=== PATIENT | female | born 1975 | race Caucasian/White ===

== ENCOUNTER 2018-07-04 11:15 | Inpatient (IN) | payer OTHER ==
[~2018-07-04] VITALS: Ht 170.2 cm; Wt 64.0 kg
[~2018-07-04 11:15] MED LIST: BUPR-160 PO; TOP100 PO
--- NOTE | 2018-07-04 11:15 | NUR ---
PATIENT BIBA TO BED 10
[2018-07-04 11:27] VITALS: BP 118/67
--- NOTE | 2018-07-04 11:28 | NUR ---
BIB EMS PT PRESENTS TO ED "ALCOHOL WITHDRAWAL," PT ADMITS TO DRINKING WINE "THIS MORNING." PT STS "I DRINK EVERY DAY." PER EMS WAS FOUND KNOCKING ON RESIDENCES' DOORS ASKING FOR ALCOHOL. PT AA&OX4, SPEECH CLEAR, PERRLA, BILATERAL EQUAL STRENGTH TO UPPER AND LOWER EXTREMITIES. BREATHING EVEN AND UNLABORED. C/O FOREHEAD AND RIGHT KNEE PAIN/SWELLING S/P FALL THIS AM, PT C/O ACHING PAIN 7/10 TO FOREHEAD AND RIGHT KNEE+LOC. HOB UP. BED RAILS X2, SEIZURE PRECAUTIONS PLACED. ON LOW BED POSITION, LOCKED. BS 102. ER MD MADE AWARE OF PTS STATUS.
--- NOTE | 2018-07-04 11:42 | NUR ---
SEIZURE PRECAUTIONS IN PLACE. PT REMOVED MONITORING EQUIPMENT. PT A&OX4, PT EDUCATED ON IMPORTANCE OF MONITORING EQUIPMENT REMAINING ON. PT REFUSING TO WEAR MONITORING EQUIPMENT AT THIS TIME. PT IN AND OUT OF GURNEY WITH STEADY GAIT. REFUSING TO STAY IN GURNEY AT THIS TIME. PT ONERY.
--- NOTE | 2018-07-04 11:50 | NUR ---
PT PACING BACK AND FORTH. AXO 4 REFUSING TO STAY IN [facility]. WILL CONTINUE TO MONITOR
--- NOTE | 2018-07-04 12:08 | NUR ---
Patient being evaluated by physician at bedside.
[2018-07-04] MEDS ORDERED: NACL 0.9% 1,000 ML IV ONE (12:15)
[2018-07-04] MEDS ORDERED: LORazepam 2 MG/ML VIAL IVP ONE ×2 (12:15→13:35)
[2018-07-04 12:33] LABS: BASOPHILS # (AUTO) 0.1 K/uL (0.00-0.22); EOSINOPHILS % (AUTO) 0.1 % (0.0-4.0); HEMATOCRIT 34.6 % (36-48); HEMOGLOBIN 11.4 g/dL (12.0-16.0); LYMPHOCYTES # (AUTO) 1.8 K/uL (2.5-16.5); LYMPHOCYTES % (AUTO) 17.7 % (20.5-51.1); MEAN CORPUSCULAR HEMOGLOBIN 29 pg (27-31); MEAN CORPUSCULAR HGB CONC 33 g/dL (33-37); MEAN CORPUSCULAR VOLUME 87.2 fL (80-94); MONOCYTES # (AUTO) 0.6 K/uL (0.8-1.0); MONOCYTES % (AUTO) 6.2 % (1.7-9.3); NEUTROPHILS # (AUTO) 7.8 K/uL (1.8-7.7); PLATELET COUNT (AUTO) 355 K/uL (140-450); RED BLOOD CELL COUNT(AUTO) 3.96 MIL/uL (4.20-5.40); RED CELL DISTRIBUTION WIDTH 15.1 % (11.6-13.7); WHITE BLOOD COUNT (AUTO) 10.4 K/uL (4.8-10.8)
[2018-07-04 12:37] LABS: APPEARANCE,URINE HAZY (CLEAR); BILIRUBIN,URINE NEGATIVE (NEGATIVE); BLOOD, URINE 3+ (NEGATIVE); COLOR,URINE YELLOW (YELLOW); LEUKOCYTE ESTERASE ,URINE TRACE (NEGATIVE); NITRITE, URINE NEGATIVE (NEGATIVE); UGLUCOSE NEGATIVE (NEGATIVE)
--- NOTE | 2018-07-04 12:41 | NUR ---
PT MORE RELAXED. PT IN GURNEY. NSR ON MONITOR. BREATHING EVEN AND UNLABORED.
[2018-07-04 12:46] LABS: ANION GAP 22.6 (8-16); CARBON DIOXIDE 24.8 mmol/L (21-32); CREATININE 0.9 mg/dL (0.6-1.3); POTASSIUM 4.4 mmol/L (3.5-5.1)
[2018-07-04 12:48] LABS: BARBITURATE, URINE POS. ng/ml (NEG <=200); BENZODIAZEPINE, URINE NEG. ng/mL (NEG <=200); CANNABINOID, URINE NEG. ng/mL (NEG <=50); COCAINE, URINE NEG. ng/mL (NEG <=300); OPIATE, URINE NEG. ng/mL (NEG <=2000); PHENCYCLIDINE SCREEN,URINE NEG. ng/mL (NEG <=25); WBC,URINE 0-5 /HPF (0-5)
[2018-07-04 12:50] LABS: PROTHROMBIN TIME 9.6 secs (10.8-13.4)
--- NOTE | 2018-07-04 12:50 | NUR ---
PT TAKEN TO CT VIA WHEEL CHAIR
[2018-07-04 12:52] LABS: ALBUMIN 4.2 g/dL (3.4-5.0); TOTAL BILIRUBIN 0.5 mg/dL (0.0-1.0)
--- NOTE | 2018-07-04 13:16 | NUR ---
CYCLE TOURING GUIDE BROUGHT PT BACK TO BED VIA WHEEL CHAIR
--- NOTE | 2018-07-04 13:40 | NUR ---
PT AMBULATED TO RESTROOM AND BACK TO GURNEY WITH STEADY GAIT. PT REFUSING TO GET BACK INTO GURNEY.
[2018-07-04] MEDS ORDERED: ACETAMINOPHEN 325 MG TAB PO PRN (14:20)
--- NOTE | 2018-07-04 14:46 | NUR ---
PT AMBULATED TO RESTROOM AND BACK TO BED 10 WITH STEADY GAIT. WITNESSED PT USING HAND TICKET PRINTER THEN LICKING HANDS. PT ADMITS TO LICKING HAND TICKET PRINTER. STS "IM HARD UP FOR ALCOHOL." PT REDIRECTED NOT TO CONSUME HAND TICKET PRINTER. DR. BILLY MADE AWARE. SECURITY NOTIFIED. MARILYN CONCRETE FORM SETTER AND FINISHER MADE AWARE, AT BEDSIDE AT THIS TIME.
--- NOTE | 2018-07-04 14:52 | NUR ---
NO SEIZURE ACTIVITY NOTED. SEIZURE PADS IN PLACED. INFORMATION RESOURCE CONSULTANT AT BEDSIDE. REDIRECTED PT NOT TO CONSUME HAND PRIMARY SCHOOL PRINCIPAL. PT MORE CALM AFTER MEDICATION.
--- NOTE | 2018-07-04 14:57 | NUR ---
Patient will be admitted to care of Dr. Collins. Admited to Tele. Will go to room 121 A. Belongings list completed. Report to CAMRYN Stoll.
--- NOTE | 2018-07-04 15:22 | NUR ---
Patient admitted from ER via gurney. Received report from ER nurse, patient anxious and sligthly agitated d/t ETOH withdrawals but is cooperative. Placed patient on fall risk and seizure precaution protocol. Will complete admission assessment and continue to monitor.
--- NOTE | 2018-07-04 15:45 | NUR ---
Patient attempting to ingest wall mounted hand care tech foam. Instructed patient not to do so. Will monitor patient closely.
[2018-07-04 16:00] VITALS: BP 99/60
--- NOTE | 2018-07-04 16:00 | NUR ---
Patient continues to attempt to ingest the hand roll coating machine operator foam despite repeated warnings that it is unsafe to do so. EVS removed roll coating machine operator from room per charge nurse. Will continue to monitor patient closely.
[2018-07-04] MEDS: DEXT 5% /NACL 0.9% 1,000 ML IV SCH (16:30)
[2018-07-04 16:51] VITALS: BP 98/62
[2018-07-04] MEDS ORDERED: LORazepam 1 MG TAB PO SCH (17:00)
--- NOTE | 2018-07-04 17:00 | NUR ---
Patient remains anxious and states "Ativan is not working", CAMRYN Batista to administer PO ativan per PRN order.
--- NOTE | 2018-07-04 17:40 | NUR ---
Patient remains anxious, agitated and shakey, continues to express lack of relief from the Ativan. RN Lynne to administer IV Ativan per PRN order. Will continue to monitor Pt.
[2018-07-04] MEDS: LORazepam 2 MG/ML VIAL IVP PRN (17:46)
--- NOTE | 2018-07-04 18:15 | NUR ---
Patient seems less anxious, and less restless. Pt. awake and alert, and resting in bed with bed in low position, and call light within reach. Will continue to monitor.
--- NOTE | 2018-07-04 18:46 | NUR ---
Ativan reassessment: Pt calmyly sitting up in bed, eating dinner. No signs of distress, no jittering/shaking observed. Call light within reach.
--- NOTE | 2018-07-04 19:00 | NUR ---
Patient complained of IV site discomfort and wanted to change the IV in Left hand. IV is patent and site is asymptomatic. Replaced ER dressing with new transparent dressing and taped for patient comfort. Turned on TV and instructed patient on use of call light/remote. Patient verbalized increased comfort.
--- NOTE | 2018-07-04 19:20 | NUR ---
Gave bedside report to night baker nurse Cristian, patient resting in bed, no signs of distress on RA. Watching TV with bed in low position and call light within reach.
--- NOTE | 2018-07-04 19:21 | NUR ---
REPORT RECEIVED FROM AM NURSE AT BEDSIDE. PT IN STABLE CONDITION. AAOX4. INTRODUCED SELF TO PT. BOARD UPDATED. NO COMPLAINTS OF PAIN. NO SOB. AFEBRILE. IV SITE L HAND 20G RUNNING D5NS@100ML/HR PATENT AND INTACT. SKIN WARM, DRY, AND INTACT WITH NO OPEN WOUNDS. BED LOCKED IN LOW POSITION. CALL SHAFFER WITHIN REACH. SAFETY PRECAUTIONS IN PLACE. ALL NEEDS MET AT THIS TIME. Addendum: 07/05/18 at 0042 by Cristian Arriola RN PT AMBULATES. HAS NO ORDERS FOR VTE PROPHYLAXIS.
[2018-07-04 20:00] VITALS: BP 106/61
[2018-07-04] MEDS: buPROPion 75 MG TAB PO SCH (20:10)
[2018-07-04] MEDS: TOPIRAMATE 100 MG TAB PO SCH (20:10)
--- NOTE | 2018-07-04 20:10 | NUR ---
WELLBUTRIN AND TOPAMAX GIVEN PO. PT TOLERATED WELL.
[2018-07-04] MEDS: ONDANSETRON 4 MG/2 ML VIAL IVP PRN (21:25)
--- NOTE | 2018-07-04 21:45 | NUR ---
PT HAS COMPLAINTS OF 7/10 NECK PAIN. MD NOTIFIED.
--- NOTE | 2018-07-04 21:50 | NUR ---
RETURNED CALLED FROM MD ABOUT PT'S PAIN. NEW ORDER OF NORCO 10/325 PO Q4H PRN FOR MILD PAIN. TORB.
[2018-07-04] MEDS: HYDROcodone/APAP 10/325 MG 1 TAB TAB PO PRN (22:04)
--- NOTE | 2018-07-04 22:04 | NUR ---
NORCO GIVEN FOR 7/10 PAIN. PT TOLERATED WELL.
[2018-07-05] VITALS: BP 109/61
--- NOTE | 2018-07-05 00:30 | NUR ---
PT AWAKE AND ALERT WATCHING TV IN BED. NO S/S OF DISTRESS NOTED. WILL CONTINUE TO MONITOR.
[2018-07-05] MEDS: LORazepam 2 MG/ML VIAL IVP PRN ×5 (02:20→23:32)
[2018-07-05] MEDS: ONDANSETRON 4 MG/2 ML VIAL IVP PRN ×6 (02:20→22:26)
[2018-07-05] MEDS: HYDROcodone/APAP 10/325 MG 1 TAB TAB PO PRN ×6 (02:20→22:26)
[2018-07-05] MEDS: DEXT 5% /NACL 0.9% 1,000 ML IV SCH ×3 (02:20→14:34)
--- NOTE | 2018-07-05 02:20 | NUR ---
ZOFRAN GIVEN FOR NAUSEA. NORCO GIVEN FOR 6/10 NECK PAIN. PT TOLERATED WELL.
--- NOTE | 2018-07-05 03:20 | NUR ---
VS STABLE. PT SLEEPING BUT AROUSABLE. NO S/S OF DISTRESS NOTED. BREATHING EVEN, UNLABORED, AND WNL. WILL CONTINUE TO MONITOR.
[2018-07-05 04:00] VITALS: BP 103/59
--- NOTE | 2018-07-05 05:25 | NUR ---
PT HAS COMPLAINTS OF CHEST PAIN. ATIVAN GIVEN TO SEE IF CHEST PAIN IS DUE TO ANXIETY. WILL REASSESS IN 15 MINUTES.
--- NOTE | 2018-07-05 05:45 | NUR ---
RETURNED CALL. ORDERED EKG AND TROPONIN.
--- NOTE | 2018-07-05 06:00 | NUR ---
MD ORDERED TYLENOL 650MG PO FOR THE CHEST PAIN BUT PATIENT SAID SHE WOULD RATHER WAIT FOR THE NORCO TO BE DUE THAN TAKE THE TYLENOL. TYL 650MG PULLED FROM PYXIS AND OPENED. WASTED IN PHARMACEUTICAL BIN.
--- NOTE | 2018-07-05 06:21 | NUR ---
ZOFRAN GIVEN IVP FOR NAUSEA. NORCO GIVEN FOR CHEST PAIN. PT TOLERATED WELL.
[2018-07-05 06:56] LABS: BASOPHILS % (AUTO) 0.5 % (0.0-2.0); EOSINOPHILS % (AUTO) 0.4 % (0.0-4.0); HEMATOCRIT 28.3 % (36-48); HEMOGLOBIN 9.4 g/dL (12.0-16.0); LYMPHOCYTES # (AUTO) 1.1 K/uL (2.5-16.5); LYMPHOCYTES % (AUTO) 20.9 % (20.5-51.1); MEAN CORPUSCULAR HEMOGLOBIN 29 pg (27-31); MEAN CORPUSCULAR HGB CONC 33 g/dL (33-37); MEAN CORPUSCULAR VOLUME 88.6 fL (80-94); MONOCYTES # (AUTO) 0.3 K/uL (0.8-1.0); MONOCYTES % (AUTO) 5.5 % (1.7-9.3); NEUTROPHILS # (AUTO) 3.9 K/uL (1.8-7.7); NEUTROPHILS % (AUTO) 72.7 % (42.2-75.2); PLATELET COUNT (AUTO) 249 K/uL (140-450); RED BLOOD CELL COUNT(AUTO) 3.19 MIL/uL (4.20-5.40); RED CELL DISTRIBUTION WIDTH 15.1 % (11.6-13.7); WHITE BLOOD COUNT (AUTO) 5.3 K/uL (4.8-10.8)
[2018-07-05 07:26] LABS: ANION GAP 12.6 (8-16); CARBON DIOXIDE 28.9 mmol/L (21-32); CREATININE 0.7 mg/dL (0.6-1.3); PHOSPHORUS 3.4 mg/dL (2.5-4.9); POTASSIUM 3.5 mmol/L (3.5-5.1); TOTAL BILIRUBIN 0.8 mg/dL (0.0-1.0)
[2018-07-05 08:00] VITALS: BP 109/77
[2018-07-05] MEDS ORDERED: buPROPion 75 MG TAB PO SCH (09:00)
[2018-07-05] MEDS: buPROPion 75 MG TAB PO SCH ×2 (09:15→20:11)
[2018-07-05] MEDS: THIAMINE 100 MG TAB PO SCH (09:15)
[2018-07-05] MEDS: TOPIRAMATE 100 MG TAB PO SCH ×2 (09:15→20:11)
[2018-07-05] MEDS: FOLIC ACID 1 MG TAB PO SCH (09:15)
[2018-07-05] MEDS: MULTIVITAMIN/MINERALS 1 TAB PO SCH (09:15)
--- NOTE | 2018-07-05 10:01 | NUR ---
PATIENT HAS BEEN SCREENED AND CATEGORIZED MODERATE NUTRITION RISK. PATIENT WILL BE SEEN WITHIN 3-5 DAYS OF ADMISSION. 07/07/18[address]
--- NOTE | 2018-07-05 10:30 | NUR ---
Patient in bed, complaining of pain 7/10 for headache, but refusing Tylenol and requesting Bonfield. Bonfield not available to administer until 10:27. Otherwise no signs of distress on RA, Bed in low position, Call light within reach. Will continue to monitor
--- NOTE | 2018-07-05 11:28 | NUR ---
CM NOTE I SPOKE WITH [facility]AN [phone] TO SET UP PATIENT'S OUTPATIENT FOLLOW UP APPOINTMENT ON JULY 12, 2018, 0915 AM, AT [address] [place] [id number]. I GAVE THE PATIENT HER OUTPATIENT FOLLOW UP SCHEDULE.
--- NOTE | 2018-07-05 11:30 | NUR ---
Patient states that the [place] makes her stomach hurt, and is requesting a pain medication that can be given IV. Current pain med is effective.
[2018-07-05 12:00] VITALS: BP 109/72
--- NOTE | 2018-07-05 13:30 | NUR ---
Received report from charge nurse that pt was found sitting on the floor on the right side of her bed @ 1310. Pt was assessed by charge nurse, noted right neck 10/10 pain, no redness/swelling. VS: 148/98, 98.8, 116, 20, 96% room air. Dr. Collins was paged. Pt was assisted back to bed with min assist, ice pack given for rt neck pain. Pt reassessed at this time. Pt in bed, awake, ice pack on right neck. Cont to verbalize 10/10 pain to site. Inspected site; no swelling/redness. Current BP 132/83 at this time. Bed alarm on. Call light within reach. Will continue to monitor. Awaiting physician call back.
--- NOTE | 2018-07-05 14:10 | NUR ---
Pt requests assistance to void. Pt states right neck pain reduced to 8/10 & is tolerable. Able to amb with unsteady gait from bed to toilet. Hand held assist provided. Voided x1. Assisted with handwashing & back to bed. Bed alarm on low with alarm on, call light within reach.
--- NOTE | 2018-07-05 14:25 | NUR ---
Lorazepam admin: Pt in bed noted to be jittery/shaking. Pt alert, verbal, no c/o discomfort at this time, ice pack to right neck for comfort. Lorazepam IVP administered. Bed on lowest position with alarm on, call light within reach.
[2018-07-05 16:00] VITALS: BP 115/76
--- NOTE | 2018-07-05 16:00 | NUR ---
Patient lying in bed, vitals stable, complaining of pain 7/10 in neck region and requesting medication for pain. Not able to admin pain meds at this time. Will continue to monitor patient
--- NOTE | 2018-07-05 19:14 | NUR ---
Report given to pm nurse Foster.
--- NOTE | 2018-07-05 19:15 | NUR ---
REPORT RECEIVED FROM AM NURSE AT BEDSIDE. PT IN STABLE CONDITION. AAOX4. INTRODUCED SELF TO PT. BOARD UPDATED. NO COMPLAINTS OF PAIN. NO SOB. AFEBRILE. IV SITE L HAND 20G RUNNING D5NS@100ML/HR PATENT AND INTACT. SKIN WARM, DRY, AND INTACT BUT HAS BRUISING ON THE FOREHEAD AND ARM. BED LOCKED IN LOW POSITION. CALL SHAFFER WITHIN REACH. SAFETY PRECAUTIONS IN PLACE. ALL NEEDS MET AT THIS TIME.
[2018-07-05 20:00] VITALS: BP 117/71
[2018-07-05] MEDS: LORazepam 1 MG TAB PO SCH (20:11)
--- NOTE | 2018-07-05 20:11 | NUR ---
WELLBUTRIN, ATIVAN, AND TOPAMAX GIVEN PO. PT TOLERATED WELL.
--- NOTE | 2018-07-05 20:50 | NUR ---
PT PULLED OUT IV. CANNULA INTACT. WILL INSERT NEW IV.
--- NOTE | 2018-07-05 21:30 | NUR ---
NEW IV INSERTED L FA 22G. 1 ATTEMPT THAT FLUSHES WELL. DATE, TIME AND INITIALS PLACED.
--- NOTE | 2018-07-05 22:26 | NUR ---
NORCO GIVEN FOR 7/10 NECK PAIN. ZOFRAN GIVEN FOR NAUSEA. PT TOLERATED WELL.
--- NOTE | 2018-07-05 23:32 | NUR ---
ATIVAN GIVEN FOR ANXIETY. PT TOLERATED WELL.
[2018-07-06] VITALS: BP 111/76
[2018-07-06] MEDS: DEXT 5% /NACL 0.9% 1,000 ML IV SCH ×2 (00:30→10:45)
[2018-07-06] MEDS: HYDROcodone/APAP 10/325 MG 1 TAB TAB PO PRN ×5 (02:30→21:37)
[2018-07-06] MEDS: ONDANSETRON 4 MG/2 ML VIAL IVP PRN ×5 (02:30→21:05)
--- NOTE | 2018-07-06 02:30 | NUR ---
NORCO GIVEN FOR 7/10 NECK PAIN. ZOFRAN GIVEN FOR NAUSEA. PT TOLERATED WELL.
[2018-07-06 04:00] VITALS: BP 113/73
[2018-07-06] MEDS: LORazepam 2 MG/ML VIAL IVP PRN ×4 (04:07→17:18)
--- NOTE | 2018-07-06 04:07 | NUR ---
ATIVAN GIVEN FOR ANXIETY. PT TOLERATED WELL.
--- NOTE | 2018-07-06 05:20 | NUR ---
MD RETURNED CALL REGARDING PT'S MIGRAINE. ORDERED IBUPROFEN 400MG PO Q4H PRN FOR HEADACHE. TORB.
[2018-07-06] MEDS: IBUPROFEN 400 MG TAB PO PRN (05:28)
--- NOTE | 2018-07-06 05:28 | NUR ---
IBUPROFEN GIVEN FOR A HEADACHE. PT TOLERATED WELL.
--- NOTE | 2018-07-06 07:11 | NUR ---
REPORT GIVEN TO AM NURSE AT BEDSIDE. PT IN STABLE CONDITION.
--- NOTE | 2018-07-06 07:12 | NUR ---
REPORT RECEIVED FROM WASHING MACHINE OPERATOR CAMRYN QUACH AT BEDSIDE FOR CONTINUITY OF CARE. PATIENT AWAKE AND ALERT, C/O OF PAIN AND REQUESTING FOR PAIN MEDICATION. WILL ASSESS AND MEDICATE PATIENT. RESPIRATIONS EVEN AND UNLABORED ON ROOM AIR. PATIENT IS ANXIOUS ABOUT PAIN MEDICATION. IV SITE PATENT, INTACT, AND ASYMPTOMATIC INFUSING IVF WELL. VERBALIZED PLAN OF CARE WITH PATIENT, SHE VERBALIZED UNDERSTANDING AND ASKED FOR NEXT ATIVAN DOSE, INFORMED HER OF NEXT SCHEDULE DOSE. SAFETY AND SEIZURE PRECAUTIONS IN PLACE, BED ON LOWEST SETTING WITH BED ALARM ON, CALL LIGHT WITHIN REACH, WILL CONTINUE TO MONITOR PATIENT.
[2018-07-06 08:00] VITALS: BP 112/81
--- NOTE | 2018-07-06 08:18 | NUR ---
DR. TARANGO IN TO SEE THE PATIENT. WILL WAIT FOR HIS EVALUATION.
[2018-07-06] MEDS ORDERED: IBUP-2216 PO (08:24)
--- NOTE | 2018-07-06 08:25 | NUR ---
DR. TARANGO CALLED BACK. INFORMED HIM ABOUT PATIENT'S REQUEST TO GO HOME TOMORROW AND HOW SHE WAS FEELING "PAIN AND UNABLE TO MOVE". PHYSICAL THERAPY HAD BEEN IN TO SEE PATIENT. PATIENT REFUSED TO WALK AROUND IN HALLWAY STATING THAT SHE WAS "UNSTEADY AND CAN'T DO IT". PER DOCTOR TARANGO, PATIENT CLEARED MEDICALLY TO GO HOME, TRANSPORT CAN BE PROVIDED BY BUS PASS OR [facility] [facility]. PATIENT CAN GO HOME LATER IN THE DAY. RN VERBALIZED UNDERSTANDING.
--- NOTE | 2018-07-06 08:50 | NUR ---
PATIENT REPORTED ANXIOUSNESS. ATTEMPTED TO GET OUT OF BED. PATIENT UNSTEADY. ATIVAN GIVEN. PATIENT TOLERATING IT. PATIENT NOW BACK IN BED. SAFETY PRECAUTIONS IN PLACE, CALL LIGHT WITHIN REACH, BED ALARM ON AND IN LOWEST SETTING, WILL CONTINUE TO MONITOR PATIENT.
[2018-07-06] MEDS: LORazepam 1 MG TAB PO SCH ×2 (09:00→20:35)
--- NOTE | 2018-07-06 09:30 | NUR ---
PATIENT AMBULATED TO BATHROOM ON STEADY GAIT WITH STANDBY ASSIST. PATIENT VOIDED. PATIENT NOW BACK IN BED, PATIENT C/O PAIN, REQUESTING FOR NORCO, REMINDED HER OF NEXT SCHEDULED DUE MED. OFFERRED HER MOTRIN PO. PATIENT REFUSED. SAFETY PRECAUTIONS IN PLACE, CALL LIGHT WITHIN REACH, WILL CONTINUE TO MONITOR PATIENT.
[2018-07-06] MEDS: MULTIVITAMIN/MINERALS 1 TAB PO SCH (09:38)
[2018-07-06] MEDS: TOPIRAMATE 100 MG TAB PO SCH ×2 (09:38→20:34)
[2018-07-06] MEDS: THIAMINE 100 MG TAB PO SCH (09:38)
[2018-07-06] MEDS: buPROPion 75 MG TAB PO SCH (09:38)
[2018-07-06] MEDS: FOLIC ACID 1 MG TAB PO SCH (09:39)
--- NOTE | 2018-07-06 09:40 | NUR ---
ORDERED MEDICATIONS GIVEN. PATIENT TOLERATED THEM. RESPIRATIONS EVEN AND UNLABORED ON ROOM AIR. PATIENT ASKED FOR NEXT DUE KEVINCO, INFORMED HER OF NEXT SCHEDULED MED, SHE VERBALIZED UNDERSTANDING. SAFETY PRECAUTIONS IN PLACE, CALL LIGHT WITHIN REACH, WILL CONTINUE TO MONITOR PATIENT.
[2018-07-06 11:53] VITALS: BP 122/81
--- NOTE | 2018-07-06 12:05 | NUR ---
SPOKE WITH ASSIGNED NURSE EARLIER THAT PT IS REQUESTING TO GO HOME TOMORROW, PT STATED SHE LIVES ALONE, STILL WEAK AND SHAKY AND SHE DOES NOT HAVE HER HOUSE KEYS. LEFT A MESSAGE TO PT'S MOTHER (CELLPHONE) QUINTEN SHANE LISTED ON FACE SHEET REGARDING PT'S DISCHARGE TO HOME. SPOKE WITH DR. TARANGO, RECEIVED A TORB FOR PSYCH CONSULT. SPOKE WITH THE EXCHANGE, MESSAGE SENT TO DR. BEDOLLA. AWAITING FOR CALL BACK, ASSIGNED NURSE MADE AWARE.
--- NOTE | 2018-07-06 12:51 | NUR ---
DR. ORTIZREES IN TO SEE THE PATIENT. WILL WAIT FOR HIS EVALUATION.
--- NOTE | 2018-07-06 13:02 | NUR ---
PRN ATIVAN GIVEN PER PATIENT'S REQUEST DUE TO HER ANXIOUSNESS AND "SHAKINESS". UPDATED PATIENT WITH INFORMATION, HER MOTHER QUINTEN SHANE WAS CALLED AT [phone], NO ANSWER, VOICEMAIL LEFT. WILL WAIT FOR HER CALL BACK.
--- NOTE | 2018-07-06 13:22 | NUR ---
CALLED PATIENT'S MOTHER QUINTEN SHANE AT [phone]. NO ANSWER, VOICEMAIL LEFT, WILL FOLLOW UP.
--- NOTE | 2018-07-06 14:45 | NUR ---
CALLED QUINTEN SHANE AT [phone], NO ANSWER. LEFT VOICEMAIL WITH CALL BACK NUMBER, WILL CONTINUE TO FOLLOW UP. PATIENT RESTING IN BED, HAD GOTTEN UP AND AMBULATED TO BATHROOM ON SLOW BUT STEADY GAIT. PATIENT ASKED WHEN NEXT PAIN MED AND ATIVAN DOSE DUE. INFORMED HER OF THE NEXT SCHEDULED DOSES. SHE VERBALIZED UNDERSTANDING. NO COMPLAINTS AT THIS TIME. SAFETY AND SEIZURE PRECAUTIONS IN PLACE, CALL LIGHT WITHIN REACH, WILL CONTINUE TO MONITOR PATIENT.
--- NOTE | 2018-07-06 15:15 | NUR ---
CALLED PT'S MOTHER, QUINTEN SHANE AT [phone], NO ANSWER. LEFT VOICEMAIL WITH CALL BACK NUMBER, WILL CONTINUE TO FOLLOW UP.
[2018-07-06 16:00] VITALS: BP 120/80
--- NOTE | 2018-07-06 17:03 | NUR ---
PRN ATIVAN GIVEN PER PATIENT'S REQUEST DUE TO HER ANXIOUSNESS AND "SHAKINESS". PATIENT TOLERATED IT WELL. SAFETY PRECAUTIONS IN PLACE, CALL LIGHT WITHIN REACH, WILL CONTINUE TO MONITOR PATIENT.
--- NOTE | 2018-07-06 19:09 | NUR ---
REPORT GIVEN TO HOME COORDINATOR RN AT BEDSIDE FOR CONTINUITY OF CARE. PATIENT INQUIRED ABOUT HER PAIN MEDICATION AND ATIVAN. INFORMED HER OF NEXT SCHEDULED MED AND TO ASK HER PM RN WHEN THE MEDICATIONS ARE DUE. SHE VERBALIZED UNDERSTANDING. PATIENT IN STABLE CONDITION.
--- NOTE | 2018-07-06 19:10 | NUR ---
RECEIVED PATIENT AWAKE LYING ON BED. RESPIRATION EVEN AND UNLABORED. EXPLAINED PLAN OF CARE. FALL PRECAUTION APPLIED . CALL LIGHT WITHIN REACH.PATIENT FOLLOW SIMPLE COMMANDS, AND ABLE TO RECOGNIZES HER NEEDS. WILL CONTINUE TO MONITOR.
[2018-07-06 20:00] VITALS: BP 122/75
--- NOTE | 2018-07-06 21:00 | NUR ---
SCHEDULE MEDICATION GIVEN TOLERATED WELL. FALL PRECAUTION APPLIED. CALL LIGHT WITHIN REACH. WILL CONTINUE TO MONITOR.
[2018-07-07] VITALS: BP 112/79
--- NOTE | 2018-07-07 | NUR ---
SEEN PATIENT RESTING COMFORTABLY IN BED IN MEDINA POSITION. NO S/S OF DISTRESS NOTED.FALL PRECAUTION APPLIED. CALL LIGHT WITHIN REACH.
--- NOTE | 2018-07-07 00:30 | NUR ---
PT IN BED SHE REFUSED V/S. NO S/S OF PAIN OR DISTRESS NOTED. BED LOW AND ALL FALLS PRECAUTIONS IN PLACE.
[2018-07-07 04:00] VITALS: BP 118/80
--- NOTE | 2018-07-07 04:00 | NUR ---
REPORT GIVEN TO AM SHIFT RN AT BEDSIDE. BED IN LOW LOCKED POSITION. CALL LIGHT WITHIN REACH. PATIENT IN STABLE CONDITION.
[2018-07-07] MEDS: IBUPROFEN 400 MG TAB PO PRN (05:24)
[2018-07-07] MEDS: ONDANSETRON 4 MG/2 ML VIAL IVP PRN ×4 (06:55→22:45)
[2018-07-07] MEDS: HYDROcodone/APAP 10/325 MG 1 TAB TAB PO PRN ×5 (06:55→22:34)
--- NOTE | 2018-07-07 07:00 | NUR ---
RECEIVED BEDSIDE REPORT FROM CAMRYN HASSAN. PATIENT ON TELE MONITOR AND STANDARD PRECAUTIONS IN PLACE. FALL RISK AND SEIZURE PRECAUTIONS IN PLACE. PATIENT AAOX4. ON ROOM AIR, NO DISTRESS NOTED. ABRASIONS ON FOREHEAD, R KNEE, R SANCHEZ ALL OPEN TO AIR. PATIENT AMBULATORY AND CONTINENT. IV ON L FA 22 G SALINE LOCK, ASYMPTOMATIC PATENT AND INTACT. BED IN LOW POSITION, CALL LIGHT WITHIN REACH, WILL CONTINUE TO MONITOR.
[2018-07-07 08:00] VITALS: BP 115/78
[2018-07-07] MEDS: LORazepam 1 MG TAB PO SCH (08:24)
[2018-07-07] MEDS: TOPIRAMATE 100 MG TAB PO SCH ×2 (08:25→21:05)
[2018-07-07] MEDS: FOLIC ACID 1 MG TAB PO SCH (08:25)
[2018-07-07] MEDS: MULTIVITAMIN/MINERALS 1 TAB PO SCH (08:25)
[2018-07-07] MEDS: THIAMINE 100 MG TAB PO SCH (08:25)
--- NOTE | 2018-07-07 08:27 | NUR ---
ADMINISTERED SCHEDULED MEDS. PATIENT TOLERATED WELL. WILL CONTINUE TO MONITOR.
--- NOTE | 2018-07-07 09:15 | NUR ---
PATIENT WAS WALKING WITH PT AND VERBALLY STATED TO ME "IF THE DOCTOR LETS ME GO HOME, HE IS RESPONSIBLE IF I KILL MYSELF. I NEED TO BE BROUGHT TO ANOTHER FACILITY FOR A 5150 HOLD."
--- NOTE | 2018-07-07 10:15 | NUR ---
PATIENT DOWNGRADED TO MED SURGE. REMOVED TELE MONITOR. WILL CONTINUE TO MONITOR.
--- NOTE | 2018-07-07 11:50 | NUR ---
CM NOTE RECEIVED ORDER TO GO TO PSYCH FACILITY. FAXED ORDER, COPY OF 5150 AND CLINICAL PACKET TO [facility] [phone], ATTN: ZARA # [phone]. I GAVE BEHAVIORAL THE NUMBER TO THE NURSING STATION WHERE PATIENT IS IN CASE THEY CALL AT A LATER TIME.
--- NOTE | 2018-07-07 12:53 | NUR ---
PATIENT SLEEPING. ON ROOM AIR, NO COMPLAINTS AT THIS TIME. WILL CONTINUE TO MONITOR.
--- NOTE | 2018-07-07 13:53 | NUR ---
ADMINISTERED ZOFRAN PRN FOR FEELING NAUSEATED AND NORCO PRN FOR 8/10 PAIN. BP OF 131/86 AND HR 76. PATIENT TOLERATED WELL. WILL CONTINUE TO MONITOR.
--- NOTE | 2018-07-07 15:09 | NUR ---
No updates from contacted facilties at this time. will continue to look for placement throughout shift. will update unit when new information has been received. No beds available at following hospitals: Called [facility] and s/w Tanesha, No vacancies at this time. Called [facility] and s/w Eduardo, No Beds available today. Called [facility], No beds available today. Called [facility] and s/w Randa, reviewing charts at this time. Called [facility] and s/w Leyda, no Beds at this time. Called [facility] and s/w Emir, No beds available at this time. Called [facility] and s/w Merle, No vacancies at this time. Called [facility] and s/w Jude, they have no beds at this time and are still reviewing charts. Called [facility] and s/w iMna they have no beds at this time and are still reviewing charts. Called [facility] and s/w Jamila, they have no beds at this time and are still reviewing charts.
--- NOTE | 2018-07-07 15:30 | NUR ---
PATIENT WATCHING TV. ON ROOM AIR, NO DISTRESS NOTED. WILL CONTINUE TO MONITOR.
[2018-07-07 16:00] VITALS: BP 123/82
--- NOTE | 2018-07-07 19:30 | NUR ---
BEDSIDE REPORT GIVEN TO CAMRYN CHILDERS. PATIENT ENDORSED IN STABLE CONDITION.
--- NOTE | 2018-07-07 19:30 | NUR ---
RECEIVED REPORT FORM KENZIE COWAN DAYSHIFT NURSE AT BEDSIDE FOR CONTINUITY OF CARE, PT IN STABLE CONDITION.
--- NOTE | 2018-07-07 20:00 | NUR ---
PT IN BED WITH FALLS PRECAUTIONS IN PLACE. V/S FOLLOWS: T 99.2 P 90 R 18 B/P 116/80 02 95% ON ROOM AIR. PT C/O THAT SHE WANTS ANOTHER BANDAGE ON HER LEFT KNEE DUE TO BANDAGE ABSENT. AREA HAS SCAB NO BLEEDING NOTED. PT ALSO REQUEST ATIVAN PRN. PT AOX4 AND SKIN INTACT EXCEPT FOR SMALL SCAB ON FOREHEAD, SCAB ON KNEE AND SANCHEZ. IV SITE LEFT F/A 22 GUAGE INTACT.
--- NOTE | 2018-07-07 20:30 | NUR ---
PT LEFT KNEE REBANDAGE REQUESTED. TOPAMAX ANTI SEIZURE MEDS GIVEN ORDERED. ALL SEIZURE PRECAUTIONS IN PLACE. NO SEIZURES NOTED. PT WANTED TO CLOSE THE DOOR BUT WAS REMINDED THAT SHE IS ON FALLS PRECAUTIONS AND NEEDS TO BE CLOSELY MONITORED, PT VERBALIZED UNDERSTANDING.
[2018-07-07] MEDS: LORazepam 2 MG/ML VIAL IVP PRN (20:59)
--- NOTE | 2018-07-07 20:59 | NUR ---
PT C/O THAT IV SITE HURTS WHEN BEING FLUSHED A SMALL AMOUNT OF REDNESS NOTED ABOVE THE SITE. PT GIVEN NEW IV SITE ON LEFT HAND 24 GUAGE AND FLUSHED PATENT.
--- NOTE | 2018-07-07 22:50 | NUR ---
PT REQUESTED IVP ZOFRAN FOR C/O OF NAUSEA. PT ALSO C/O 6/10 PAIN IN HER NECK. SHE WAS GIVEN PO/PRN MORPHINE AND IVP ZOFRAN ORDERED. WILL MONITOR FOR EFFECT.
[2018-07-08] VITALS: BP 115/77
--- NOTE | 2018-07-08 | NUR ---
Called the following contracted psych facilities regarding bed placement. Currently no bed vacancies at this time. [facility], spoke with Prasanna. Not accepting packets at this time. [facility], spoke with aMk. [facility], spoke with nursing substation electrician supervisor Aazm. [facility], spoke with Maritza. They are at full capacity but will accept packet for morning review. Packet has been faxed. [facility], spoke with Crystal. No beds at this time. [facility], spoke with Shireen. Currently they have psych admissions in ED and can not accommodate outside referrals. Call Center will notify unit when new we have new information.
[2018-07-08] MEDS: ONDANSETRON 4 MG/2 ML VIAL IVP PRN ×4 (05:17→20:30)
[2018-07-08] MEDS: HYDROcodone/APAP 10/325 MG 1 TAB TAB PO PRN ×4 (05:17→20:30)
--- NOTE | 2018-07-08 05:26 | NUR ---
PT AWAKE CONSENTING TO V/S T 97.0 P 70 R 18 B/P 115/77 02 100 R/A. PT REQUEST NORCO FOR NECK PAIN AND ZOFRAN FO R NAUSEA. GIVEN REQUESTED.
--- NOTE | 2018-07-08 07:15 | NUR ---
REPORT GIVEN TO TERESA COWAN DAYSHIFT NURSE AT BEDSIDE FOR CONTINUITY OF CARE, PT IN STABLE CONDITION.
--- NOTE | 2018-07-08 07:16 | NUR ---
GOT BEDSIDE REPORT FROM CAMRYN CHILDERS. PATIENT ON MED SURGE AND STANDARD PRECAUTIONS IN PLACE, AAOX4, ON ROOM AIR WITH NO DISTRESS NOTED. ABRASIONS ON FOREHEAD, R KNEE, AND R SANCHEZ. FALL RISK PROTOCOL IN PLACE. IV ON L HAND 22 G SALINE LOCK, IV ASYMPTOMATIC PATENT AND INTACT. BED IN LOW POSITION, CALL LIGHT WITHIN REACH, WILL CONTINUE TO MONITOR.
[2018-07-08 08:00] VITALS: BP 117/82
--- NOTE | 2018-07-08 08:11 | NUR ---
PATIENT HAS BEEN SCREENED AND CATEGORIZED LOW NUTRITION RISK. PATIENT WILL BE SEEN WITHIN 7 DAYS OF ADMISSION. 07/14/[address]
[2018-07-08] MEDS: LORazepam 2 MG/ML VIAL IVP PRN ×3 (08:58→19:21)
[2018-07-08] MEDS: IBUPROFEN 400 MG TAB PO PRN (08:58)
[2018-07-08] MEDS: ESCITALOPRAM 20 MG TAB PO SCH (08:59)
[2018-07-08] MEDS: MULTIVITAMIN/MINERALS 1 TAB PO SCH (08:59)
[2018-07-08] MEDS: TOPIRAMATE 100 MG TAB PO SCH ×2 (08:59→20:30)
[2018-07-08] MEDS: FOLIC ACID 1 MG TAB PO SCH (09:00)
[2018-07-08] MEDS: THIAMINE 100 MG TAB PO SCH (09:00)
--- NOTE | 2018-07-08 09:05 | NUR ---
ADMINISTERED SCHEDULED MEDS AND ATIVAN PRN FOR ANXIETY AND MOTRIN PRN FOR HEADACHE. PATIENT TOLERATED WELL. WILL CONTINUE TO MONITOR.
--- NOTE | 2018-07-08 11:24 | NUR ---
Dr. Peraza at bedside to asses pt.
--- NOTE | 2018-07-08 13:30 | NUR ---
BP 120/85 AND HR 102. ADMINISTERED ATIVAN 2 MG PRN ANXIETY. PATIENT TOLERATED WELL. WILL CONTINUE TO MONITOR.
[2018-07-08 16:00] VITALS: BP 129/80
--- NOTE | 2018-07-08 16:26 | NUR ---
ADMINISTERED NORCO PRN 8/10 PAIN AND ZOFRAN PRN FOR NAUSEA. PATIENT TOLERATED WELL. WILL CONTINUE TO MONITOR.
--- NOTE | 2018-07-08 19:29 | NUR ---
GAVE BEDSIDE REPORT TO CAMRYN COLÓN. PATIENT ENDORSED IN STABLE CONDITION.
--- NOTE | 2018-07-08 19:30 | NUR ---
RECEIVED PT SITTING ON BED, AAOX4, COMPLAINING OF ANXIETY, VITAL SIGNS STABLE, MEDICATED WITH ATIVAN PRN, DENIES ANY INTENTION TO HARM SELF AT THIS TIME, ON 5150 HOLD, SITTER IN PLACED.
--- NOTE | 2018-07-08 20:30 | NUR ---
PT COMPLAINING OF PAIN AND NAUSEA, MEDICATED PRN, DUE SEIZURE MEDICATION ADMINISTERED, ALL NEEDS ATTENDED.
--- NOTE | 2018-07-08 22:00 | NUR ---
PT SLEEPING, NO SIGNS OF DISTRESS, MONITORED CLOSELY, SITTER IN PLACE.
[2018-07-08 23:00] VITALS: BP 116/68
--- NOTE | 2018-07-08 23:00 | NUR ---
PT SLEEPING, EASILY AROUSABLE, VITAL SIGNS STABLE, DENIES ANY PAIN, PT WENT BACK TO SLEEP, CONTINUE TO MONITOR CLOSELY, SITTER IN PLACE.
[2018-07-09] MEDS: ONDANSETRON 4 MG/2 ML VIAL IVP PRN ×4 (03:22→18:37)
[2018-07-09] MEDS: HYDROcodone/APAP 10/325 MG 1 TAB TAB PO PRN ×4 (03:22→18:37)
--- NOTE | 2018-07-09 03:25 | NUR ---
PT AMBULATED TO BR WITH STEADY GAIT, PT BACK TO BED COMPLAINING OF PAIN, MEDICATED PRN WITH NORCO AND ZOFRAN, MONITORED CLOSELY.
[2018-07-09] MEDS: LORazepam 2 MG/ML VIAL IVP PRN ×4 (04:19→21:04)
--- NOTE | 2018-07-09 05:13 | NUR ---
There are still no beds available , at any of the designated facilities , will endorsed to incoming shift to continue to look for placement.
--- NOTE | 2018-07-09 06:20 | NUR ---
PT SLEEPING, NO SIGNS OF DISTRESS, MONITORED CLOSELY.
--- NOTE | 2018-07-09 07:17 | NUR ---
PT SLEEPING, NO SIGNS OF DISTRESS, REPORT GIVEN TO RN GENIE FOR CONTINUITY OF CARE.
--- NOTE | 2018-07-09 07:18 | NUR ---
Report received from pm nurse Gabriel. Pt asleep in bed, respirations even & nonlabored, FLACC 0. Sitter at bedside.
[2018-07-09 08:00] VITALS: BP 117/87
[2018-07-09] MEDS: FOLIC ACID 1 MG TAB PO SCH (09:17)
[2018-07-09] MEDS: THIAMINE 100 MG TAB PO SCH (09:18)
[2018-07-09] MEDS: ESCITALOPRAM 20 MG TAB PO SCH (09:18)
[2018-07-09] MEDS: TOPIRAMATE 100 MG TAB PO SCH ×2 (09:18→21:04)
[2018-07-09] MEDS: MULTIVITAMIN/MINERALS 1 TAB PO SCH (09:18)
[2018-07-09] MEDS ORDERED: POLYETHYLENE GLYCOL 17 GM/PKT PO PRN (10:20)
--- NOTE | 2018-07-09 10:41 | NUR ---
Pt quietly sitting in bed, reading magazines. No signs of distress. Sitter at bedside.
--- NOTE | 2018-07-09 11:25 | NUR ---
Dr. Alfred at bedside to asses pt. Pt interacting appropriately.
--- NOTE | 2018-07-09 12:05 | NUR ---
Pt asked to use phone to talk to her mom. Dialed [phone] from pt's file for mother Lainey Tovar. Pt hung up phone after a few minutes & began sobbing quietly. 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 Active listening & reassurance provided. Pt states she will try calling again later.
--- NOTE | 2018-07-09 12:20 | NUR ---
Pt complained about anxiety from her mom not taking her calls. pt requested to get her PRN ativan. Pt also stated she was experiencing neck pain. Will administer ativan and motrin per dr spann.
[2018-07-09] MEDS: IBUPROFEN 400 MG TAB PO PRN (12:30)
--- NOTE | 2018-07-09 13:31 | NUR ---
Ativan reassessment: Pt sitting up on bed, quietly reading magazines. No signs of distress. FLACC 0. Sitter at bedside.
--- NOTE | 2018-07-09 14:03 | NUR ---
Pt states she gets nauseated everytime she takes [place]. Ondansetron IV administered with [place] po.
--- NOTE | 2018-07-09 14:56 | NUR ---
ROUNDED ON PT. PT RESTING COMFORTABLY IN BED. SITTER AT BEDSIDE. WILL CONTINUE TO MONITOR
--- NOTE | 2018-07-09 15:03 | NUR ---
No c/o nausea at this time. No episode of vomiting. Pt sitting quietly on bed, no signs of distress. Sitter at bedside.
--- NOTE | 2018-07-09 15:51 | NUR ---
Received call from Al stating he is pt's uncle & asking to speak with pt. Asked pt if she wants to talk to the person, states ok & used phone with supervision. Sitter at bedside.
[2018-07-09 16:00] VITALS: BP 107/79
--- NOTE | 2018-07-09 17:05 | NUR ---
Ativan admin: Pt noted to be restless with c/o feeling generally anxious about "everything". Active listening & reassurance provided. Ativan administered.
--- NOTE | 2018-07-09 18:21 | NUR ---
Miralax administered d/t no BM since admission. Pt denies any GI discomfort at this time. Pt teaching provided re: side effects of narcotics & decreased immobility. Encouraged to drink plenty of fluids & amb as tammi. Pt verbalized understanding & agree with plan of care.
--- NOTE | 2018-07-09 19:16 | NUR ---
endorsed pt to insole doubler nurse. pt resting comfortably in bed. sitter at bedside. pt stable. all safety measures in place.
--- NOTE | 2018-07-09 19:17 | NUR ---
RECEIVED PT SITTING UP ON BED READING A MAGAZINE, CALM AND COOPERATIVE, DENIES INTENT TO HARM SELF, ON 5150 HOLD, SITTER IN PLACE.
--- NOTE | 2018-07-09 21:05 | NUR ---
DUE SEIZURE MEDICATION TAKEN, PT ANXIOUS, MEDICATED PRN WITH ATIVAN, CALM AND COOPERATIVE, ALL NEEDS ATTENDED.
[2018-07-10] VITALS: BP 108/69
--- NOTE | 2018-07-10 | NUR ---
PT SLEEPING, EASILY AROUSABLE, VITAL SIGNS STABLE, DENIES ANY PAIN, CALM AND QUIET, CONTINUE TO MONITOR CLOSELY.
[2018-07-10] MEDS: ONDANSETRON 4 MG/2 ML VIAL IVP PRN ×4 (03:45→20:43)
[2018-07-10] MEDS: HYDROcodone/APAP 10/325 MG 1 TAB TAB PO PRN ×4 (03:45→20:44)
--- NOTE | 2018-07-10 03:51 | NUR ---
PT AMBULATED TO BR WITH STEADY GAIT, PT STATED HAD BM WITH WELL FORMED STOOL, PT COMPLAINING OF HEADACHE AND NECK PAIN, MEDICATED PRN, MONITORED CLOSELY.
--- NOTE | 2018-07-10 05:30 | NUR ---
PT SLEEPING, NO DISTRESS NOTED, MONITORED CLOSELY, SITTER IN PLACE.
[2018-07-10] MEDS: LORazepam 2 MG/ML VIAL IVP PRN ×4 (07:01→22:15)
[2018-07-10] MEDS: IBUPROFEN 400 MG TAB PO PRN (07:01)
--- NOTE | 2018-07-10 07:20 | NUR ---
PT SLEEPING, NO SIGNS OF DISTRESS, REPORT GIVEN TO CAMRYN DURANT FOR CONTINUITY OF CARE.
--- NOTE | 2018-07-10 07:24 | NUR ---
RECEIVED PT FROM ASSOCIATE PROFESSOR OF SURGERY NURSEAKTARZYNA, PT IS ASLEEP AND RESPIRATION IS EVEN, SIDE RAILS ARE UP AND CALL LIGHT WITHIN REACH, RESPIRATION EVEN AND HAS AN IV LINE ON THE RT WRIST ON SALINE LOCK. NO SIGN OF DISTRESS NOTED AND WILL MONITOR PT.
--- NOTE | 2018-07-10 07:25 | NUR ---
PT IS ASLEEP AND RESPIRATION IS EVEN,, PT HAS AN IV LINE ON THE RT WRIST G. 22 ON SALINE LOCK, NO SIGN OF DISTRESS NOTED, SAFETY PRECAUTION ENFORCED, BED ALARM ACTIVATE. WILL MONITOR PT.
[2018-07-10 08:00] VITALS: BP 126/80
--- NOTE | 2018-07-10 08:50 | NUR ---
PT IS AWAKE AND VITAL SIGNS CHECKED AND IS WITHIN NORMAL LIMIT, ORAL MEDICATIONS GIVEN, PT REFUSED TO TAKE THE COLACE, NO SIGN OF DISTRESS NOTED, PT IS CALM AND FOLLOWS COMMAND APPROPRIATELY, 1:1 SITTER ON BEDSIDE, WILL MONITOR PT.
[2018-07-10] MEDS: TOPIRAMATE 100 MG TAB PO SCH ×2 (08:56→20:43)
[2018-07-10] MEDS: THIAMINE 100 MG TAB PO SCH (08:56)
[2018-07-10] MEDS: MULTIVITAMIN/MINERALS 1 TAB PO SCH (08:56)
[2018-07-10] MEDS: FOLIC ACID 1 MG TAB PO SCH (08:56)
[2018-07-10] MEDS: ESCITALOPRAM 20 MG TAB PO SCH (08:56)
[2018-07-10] MEDS: DOCUSATE SODIUM 100 MG GELCAP PO SCH (08:57)
--- NOTE | 2018-07-10 10:42 | NUR ---
PT VERBALIZED A PAIN RATE IOF 8/10 ON HER NECK AND HEAD, PAIN MEDICATION WAS GIVEN AND VITAL SIGNS CHECKED AND BP IS 106/77, PULSE IS 113, O2 SATURATION IS 98%, RESPIRATION IS 18/MIN, PT ASKED FOR ZOFRAN TOGETHER WITH THE PAIN MEDICATION BECAUSE PT VERBALIZED THAT SHE FEELS NAUSEATED . WILL MONITOR PT.
--- NOTE | 2018-07-10 15:17 | NUR ---
07/10/18 RD INITIAL ASSESSMENT COMPLETED PLEASE REFER TO NUTRITION ASSESSMENT UNDER CARE ACTIVITY FOR ESTIMATED NUTRITIONAL NEEDS. 1. CONTINUE REGULAR DIET TOLERATED 2. RECOMMEND VITAMIN B12 DUE TO HX OF GASTRIC BYPASS 3. RD TO FOLLOW-UP 5-7 DAYS, LOW RISK BEST JAUREGUI, RD
[2018-07-10 16:00] VITALS: BP 114/72
--- NOTE | 2018-07-10 18:14 | NUR ---
PT IS AWAKE AND LYING ON THE BED, PT VERBALIZED FEELING BEING ANXIOUS, VITAL SIGNS CHECKED AND BP IS 119/79, PULSE IS 77, O2 SATURATION IS 98% AND RESPIRATION IS 18/MIN, MEDICATION WAS GIVEN VIA IV PUSH AND PT TOLERATED IT. NO SIGN OF DISTRESS NOTED. WILL MONITOR PT.
--- NOTE | 2018-07-10 19:30 | NUR ---
ENDORSED PT TO GRANULATOR NURSEVINICIO FOR CONTINUITY OF CARE, PT IS STABLE AT THIS TIME.
--- NOTE | 2018-07-10 19:31 | NUR ---
RECEIVED PT FROM AM SHIFT NURSE. PT AMBULATORY. CONTINUES TO BE ON 5150 HOLD. RESPIRATION IS EVEN, SIDE RAILS ARE UP AND CALL LIGHT WITHIN REACH, RESPIRATION EVEN AND HAS AN IV LINE ON THE RT WRIST G 22. ON SALINE LOCK. NO SIGN OF DISTRESS NOTED AND WILL MONITOR PT.
--- NOTE | 2018-07-10 20:34 | NUR ---
Per Jeannette pt still needs Psych Re-eval , 5150 , will be awaiting for new 5150 to be faxed in order to find placement for pt.
--- NOTE | 2018-07-10 20:37 | NUR ---
[facility] WAS HERE TO INTERVIEW PATIENT
--- NOTE | 2018-07-10 21:10 | NUR ---
DR. KARIMI WAS HERE TO INTERVIEW PATIENT. PT HAS CONSTRICTED AFFECT.
--- NOTE | 2018-07-10 21:55 | NUR ---
PT'S IV INFILTRATED ON THE LEFT WRIST. DISCONTINUED IV WITH CANNULA INTACT
--- NOTE | 2018-07-10 22:00 | NUR ---
STARTED IV LINE ON LEFT HAND G 22, PATENT.
--- NOTE | 2018-07-10 22:15 | NUR ---
PT ANXIOUS AND AGITATED. GIVEN ATIVAN ORDERED
[2018-07-11] VITALS: BP 117/77
--- NOTE | 2018-07-11 00:09 | NUR ---
FAXED DOCUMENT TO CM
--- NOTE | 2018-07-11 05:35 | NUR ---
PT WALKING INSIDE ROOM. PT SLEPT WELL EARLIER.
--- NOTE | 2018-07-11 05:47 | NUR ---
PT SLEPT WELL LAST NIGHT VERBALIZED BY PT. STILL RESTING ON BED AT THIS TIME.
--- NOTE | 2018-07-11 06:16 | NUR ---
PT, RESTING IN BED ON LOW MEDINA'S POSITION, IN STABLE CONDITION, FOR CONTINUITY OF CARE OF NEXT SHIFT NURSE.
[2018-07-11] MEDS: ONDANSETRON 4 MG/2 ML VIAL IVP PRN ×3 (06:30→17:44)
[2018-07-11] MEDS: HYDROcodone/APAP 10/325 MG 1 TAB TAB PO PRN ×4 (06:30→21:30)
--- NOTE | 2018-07-11 07:15 | NUR ---
RECEIVED PT FROM MEDICAL EQUIPMENT REPAIRER NURSEVINICIO, PT IS ASLEEP AND RESPIRATION IS EVEN, SIDE RAILS ARE UP, 1:1 SITTER ON THE BEDSIDE, SUICIDE PRECAUTION ENSURED, PT HAS AN IV LINE ON THE LEFT HAND G.22 ON SALINE LOCK, NO SIGN OF DISTRESS NOTED AND WILL MONITOR PT.
--- NOTE | 2018-07-11 07:50 | NUR ---
PT IS AWAKE AND LYING ON THE BED, VITAL SIGNS CHECKED AND BP IS 111/80, PULSE IS 108, TEMPERATURE IS 98, O2 SATURATION IS 96% AND RESPIRATION IS 16/MIN, NO SIGN OF DISTRESS NOTED, PT DENIES PAIN AND NO SOB NOTED, 1:1 SITTER ON THE BEDSIDE, WILL MONITOR PT.
[2018-07-11 08:00] VITALS: BP 133/85
[2018-07-11] MEDS: DOCUSATE SODIUM 100 MG GELCAP PO SCH (09:00)
[2018-07-11] MEDS: TOPIRAMATE 100 MG TAB PO SCH ×2 (09:01→21:30)
[2018-07-11] MEDS: MULTIVITAMIN/MINERALS 1 TAB PO SCH (09:01)
[2018-07-11] MEDS: ESCITALOPRAM 20 MG TAB PO SCH (09:02)
[2018-07-11] MEDS: THIAMINE 100 MG TAB PO SCH (09:02)
[2018-07-11] MEDS: FOLIC ACID 1 MG TAB PO SCH (09:02)
--- NOTE | 2018-07-11 09:04 | NUR ---
PT IS AWAKE AND SEATED ON THE BED, VITAL SIGNS CHECKED AND IS WITHIN NORMAL LIMIT, ORAL MEDICATIONS WERE GIVEN, REFUSED TO TAKE THE COLACE, AND PT TOLERATED THE MEDICATIONS, NO SIGN OF DISTRESS NOTED AND WILL MONITOR PT.
[2018-07-11] MEDS: IBUPROFEN 400 MG TAB PO PRN ×2 (09:10→15:06)
[2018-07-11] MEDS: LORazepam 2 MG/ML VIAL IVP PRN (09:10)
--- NOTE | 2018-07-11 10:10 | NUR ---
Enterprise Account Executive Note: Calvin Hinson from [facility] ([place]) , they do not have any beds available at this time. She stated referral is still pending to be clinically reviewed.
--- NOTE | 2018-07-11 11:20 | NUR ---
Contacted the following facilities: [facility], [facility] and [facility]. No beds available and no eta.
--- NOTE | 2018-07-11 12:43 | NUR ---
PT IS AWAKE, 1:1 SITTER ON THE BEDSIDE AND SEATED ON THE BED, PT VERBALIZED A PAIN RATE OF 8/10 ON HER NECK AND ASKED FOR A PAIN MEDICATION, VITAL SIGNS CHECKED AND BP IS 116/90, PULSE IS 81, O2 SATURATION IS 97% AND RESPIRATION IS 16/MIN. NO SIGN OF DISTRESS NOTED AND WILL MONITOR PT AND RE-ASSESS PAIN.
[2018-07-11] MEDS: LORazepam 1 MG TAB PO PRN ×2 (15:05→21:30)
--- NOTE | 2018-07-11 15:06 | NUR ---
PT IS AWAKE AND LYING ON THE BED, VERBALIZED A PAIN RATE OF 7/10 FOR THE HEAD AND FEELING OF ANXIETY, VITAL SIGNS CHECKED AND BP IS 115/81, PULSE IS 81, O2 SATURATION IS 98%, RESPIRATION IS 18/MIN. MEDICATIONS WERE GIVEN AND PT TOLERATED IT. WILL RE-ASSESS PAIN AND MONITOR PT.
[2018-07-11 16:00] VITALS: BP 127/87
--- NOTE | 2018-07-11 16:00 | NUR ---
PT IS QUIETLY SITTING ON THE BED WITH 1;1 SITTER ON BEDSIDE, VITAL SIGNS TAKEN AND BP IS 127/87, PULSE IS 96, TEMPERATURE IS 99, O2 SATURATION IS 96% AND RESPIRATION IS 16/MIN
--- NOTE | 2018-07-11 17:43 | NUR ---
PT IS AWAKE AND SEATED QUIETLY ON THE BED,VERBALIZED AN ACHING PAIN RATE OF 7/10 ON HER NECK AND HEAD AND ASKED FOR A NORCO, VITAL SIGNS CHECKED AND BP IS 126/86, PULSE IS 65, O2 SATURATION IS 100% AND RESPIRATION IS 16/MIN, PAIN MEDICATION WAS GIVEN WITH ZOFRAN BECAUSE PT REQUESTED IT FOR HER NAUSEA. PT TOLERATED THE MEDICATIONS AND WILL MONITOR AND RE-ASSESS PAIN.
--- NOTE | 2018-07-11 19:25 | NUR ---
ENDORSED PT TO ELECTRICAL SOLDERER NURSE, DEV FOR CONTINUITY OF CARE, PT IS AWAKE AND STABLE AT THIS TIME.
--- NOTE | 2018-07-11 19:26 | NUR ---
RECEIVED REPORT FROM DAY SHIFT CAMRYN DURANT FOR CONTINUITY OF CARE. PT IS A/OX4, ON ROOM AIR. PT ABLE TO MAKE NEEDS KNOWN, AND ABLE TO FOLLOW COMMANDS. PT AMBULATES WITH STEADY GAIT. PT HAS 22G IV TO LEFT WRIST, ASYMPTOMATIC AND INTACT. DISCUSSED PLAN OF CARE WITH PT, PT VERBALIZED UNDERSTANDING. VITAL SIGNS WITHIN NORMAL LIMITS. PT STABLE, DENIES PAIN, NO SIGNS OF DISTRESS NOTED AT THIS TIME. PT POSITIONED FOR COMFORT. BED IN LOWEST POSITION, BED ALARM ON. WILL CONTINUE TO MONITOR.
--- NOTE | 2018-07-11 21:32 | NUR ---
ADMINISTERED SCHEDULED MEDICATIONS ALONG WITH ATIVAN FOR ANXIETY AND NORCO FOR PAIN, PT TOLERATED WELL. VITAL SIGNS WITHIN NORMAL LIMITS. NO SIGNS OF DISTRESS NOTED AT THIS TIME. PT POSITIONED FOR COMFORT. BED IN LOWEST POSITION, BED ALARM ON. WILL CONTINUE TO MONITOR.
--- NOTE | 2018-07-11 21:51 | NUR ---
The [facility] facilities [facility] will notify Floor charge nurse if placement is available
[2018-07-12] VITALS: BP 112/68
--- NOTE | 2018-07-12 | NUR ---
VITAL SIGNS WITHIN NORMAL LIMITS. PT STABLE, DENIES PAIN, NO SIGNS OF DISTRESS NOTED AT THIS TIME. PT POSITIONED HERSELF FOR COMFORT. BED IN LOWEST POSITION, BED ALARM ON. WILL CONTINUE TO MONITOR.
[2018-07-12] MEDS: HYDROcodone/APAP 10/325 MG 1 TAB TAB PO PRN ×4 (02:19→21:14)
--- NOTE | 2018-07-12 02:19 | NUR ---
PATIENT C/O NECK PAIN, 09/25, MEDICATED WITH NORCO
--- NOTE | 2018-07-12 02:41 | NUR ---
PT STABLE, WAS MEDICATED WITH NORCO EARLIER AND DENIES ANY PAIN NOW. NO SIGNS OF DISTRESS NOTED AT THIS TIME. PT POSITIONED FOR COMFORT. BED IN LOWEST POSITION, BED ALARM ON. WILL CONTINUE TO MONITOR.
--- NOTE | 2018-07-12 04:05 | NUR ---
PT WOKE UP TO USE RESTROOM. NOW BACK IN BED RESTING. NO SIGNS OF DISTRESS NOTED AT THIS TIME. BED IN LOWEST POSITION, BED ALARM ON. WILL CONTINUE TO MONITOR.
[2018-07-12] MEDS: ONDANSETRON 4 MG/2 ML VIAL IVP PRN ×2 (06:19→21:39)
--- NOTE | 2018-07-12 06:20 | NUR ---
ADMINISTERED ZOFRAN AND NORCO REQUESTED BY PT FOR NECK PAIN AND NAUSEA. PT TOLERATED WELL.
--- NOTE | 2018-07-12 07:21 | NUR ---
RECEIVED REPORT FROM PM NURSE AT BEDSIDE. PT SHLEPPING ON HER BED. NO BEHAVIORAL ISSUES SEEN AT THIS TIME. PT HAS IV ACCESS ON LFT HAND, SL. PT ON 5150 HOLD, SITTER 1:1 AVAILABLE. NO SIGN OF DISTRESS NOTED. WILL CONTINUE TO MONITOR PT.
[2018-07-12 08:00] VITALS: BP 104/80
[2018-07-12] MEDS: ESCITALOPRAM 20 MG TAB PO SCH (09:23)
[2018-07-12] MEDS: LORazepam 1 MG TAB PO PRN ×2 (09:25→16:38)
[2018-07-12] MEDS: MULTIVITAMIN/MINERALS 1 TAB PO SCH (09:25)
[2018-07-12] MEDS: IBUPROFEN 400 MG TAB PO PRN (09:25)
[2018-07-12] MEDS: THIAMINE 100 MG TAB PO SCH (09:26)
[2018-07-12] MEDS: DOCUSATE SODIUM 100 MG GELCAP PO SCH (09:26)
[2018-07-12] MEDS: FOLIC ACID 1 MG TAB PO SCH (09:26)
[2018-07-12] MEDS: TOPIRAMATE 100 MG TAB PO SCH ×2 (09:27→21:13)
--- NOTE | 2018-07-12 09:30 | NUR ---
ADMINISTERED MEDS TO PT ORDERED. TOLERATED WELL. NO SIGN OF DISTRESS NOTED. PT LYING ON HER BED. INFORMED PT TO INFORM SITTER FOR ANY HELP. NO BEHAVIORAL ISSUES NOTED. PT CALM NAD COOPERATIVE. WILL CONTINUE TO MONITOR PT.
--- NOTE | 2018-07-12 12:20 | NUR ---
TALKED TO THE PATIENT. ASKING IF SHE CAN GET NORCO. CHECKED EMAR, HAS BEEN DISCONTINUED BY MD. STATES THAT SHE WANTS TO TALK TO MD AND ALSO STATES THAT SHE HAS NECK PAIN , AFTER FALLING AT HOSPITAL IN SECOND DAY AFTER ADMISSION. COMPLAIN OF HER NECK PAIN 8. ADMINISTERED INFORMED HER THAT MD WILL MAKE ROUND AND SHE CAN TALK ABOUT NORCO.MOTRIN 400 MG IN AM. NO SIGN OF DISTRESS NOTED. ALL SAFETY MEASURE IN PLACE. WILL CONTINUE TO MONITOR PT. PT WITH 1:1 SITTER.
[2018-07-12] MEDS ORDERED: HYDROcodone/APAP 5/325 MG 1 TAB TAB PO PRN (12:55)
--- NOTE | 2018-07-12 15:30 | NUR ---
Still no beds at the [place] facilities[place] [facility] [place]
[2018-07-12 16:00] VITALS: BP 108/73
--- NOTE | 2018-07-12 16:30 | NUR ---
CHECKED ON PT. ADMINISTERED ATIVAN ORDERED. PT DENIES ANY PAIN AT THIS TIME. WILL CONTINUE TO MONITOR PT. PT WITH 1:1 SITTER. NO DISTRESS NOTED AT THIS TIME. WILL CONTINUE TO MONITOR PT.
--- NOTE | 2018-07-12 18:00 | NUR ---
CHECKED ON PT. NO SIGN OF DISTRESS. LYING COMFORTABLY IN HER BED. WAITING FRO THE PSYCH PLACEMENT. PT WITH 1:1 SITTER. WILL CONTINUE TO MONITOR PT.
--- NOTE | 2018-07-12 19:00 | NUR ---
ENDORSED PT TO PM NURSE AT BEDSIDE NURSE TO PM NURSE. PT IN STABLE CONDITION.
--- NOTE | 2018-07-12 19:01 | NUR ---
RECD. RESTING IN BED, SLEEPING BUT EASILY RESPONDS WHEN ASKED SOME QUESTIONS. A/OX4. RESPIRATION EVEN AND UNLABORED. IV SALINE LOCK AT THE LEFT FOREARM G22, PATENT AND INTACT. SEEMS DROWSY. WENT BACK BACK TO SLEEP AFTER ANSWERING QUESTIONS. DENIES PAIN 0/10.
--- NOTE | 2018-07-12 20:00 | NUR ---
Patient's Plan of Care was discussed and reviewed with HUMAN RESOURCES PROFESSIONAL: KORIN BARNES
--- NOTE | 2018-07-12 20:35 | NUR ---
Patients 5150 07/10/18 @ 1018. Pending new 5150 to continue looking for psychiatric bed placement.
--- NOTE | 2018-07-12 21:13 | NUR ---
DUE PO MEDICATION FOR THE NIGHT GIVEN, COOPERATIVE BUT LOOKS DEPRESSED. WHEN INQUIRED IF SHE HAVE THOUGHT OF COMMITTING SUICIDE STATED "YES".
--- NOTE | 2018-07-12 21:39 | NUR ---
NAUSEATED, MEDICATED WITH ZOFRAN BY CAMRYN SHANKS.
--- NOTE | 2018-07-12 22:10 | NUR ---
NO NAUSEA NOTED, SLEEPING COMFORTABLY IN BED.
[2018-07-13] VITALS: BP 106/61
[2018-07-13] MEDS: LORazepam 1 MG TAB PO PRN ×2 (01:12→08:52)
--- NOTE | 2018-07-13 01:12 | NUR ---
WITH ANXIETY, MEDICATED WITH ATIVAN 2 MG. PO.
--- NOTE | 2018-07-13 02:12 | NUR ---
NO ANXIETY NOTED. SLEEPING COMFORTABLY IN BED.
--- NOTE | 2018-07-13 04:00 | NUR ---
STILL SLEEPING COMFORTABLY IN BED.
[2018-07-13] MEDS: HYDROcodone/APAP 10/325 MG 1 TAB TAB PO PRN ×2 (05:44→11:10)
--- NOTE | 2018-07-13 07:00 | NUR ---
ABLE TO SLEEP WELL. CONDITION REMAIN STABLE. ENDORSED TO AM SHIFT NURSE FOR CONTINUITY OF CARE.
--- NOTE | 2018-07-13 07:01 | NUR ---
REVIEVED REPORT FROM PM NURSE AT BEDSIDE. NO CHANGE OF CONDITION IN PATIENT. PT NOT ON 515O HOLD AT THIS TIME. DR. GAO NOTES ON IT. PT LYING COMFORTABLY. NO SIGN OF DISTRESS NOTED. U[DATED BOARD. WILL CONTINUE TO MONITOR PT.
[2018-07-13 07:58] VITALS: BP 102/70
[2018-07-13] MEDS: THIAMINE 100 MG TAB PO SCH (08:51)
[2018-07-13] MEDS: ESCITALOPRAM 20 MG TAB PO SCH (08:51)
[2018-07-13] MEDS: FOLIC ACID 1 MG TAB PO SCH (08:51)
[2018-07-13] MEDS: DOCUSATE SODIUM 100 MG GELCAP PO SCH (08:51)
[2018-07-13] MEDS: MULTIVITAMIN/MINERALS 1 TAB PO SCH (08:51)
[2018-07-13] MEDS: TOPIRAMATE 100 MG TAB PO SCH (08:51)
--- NOTE | 2018-07-13 08:55 | NUR ---
ADMINISTERED MEDS TO PT ORDERED. PT CRYING AT THE BEDSIDE, STATES THAT SHE FEEL SAFE IN HOSPITAL . STATES WILL HARM HERSELF, MIGHT WANNA KILL HERSELF. TELEVISION RECEIVER ANALYZER AT THE BEDSIDE. PT VERBALIZED THE FEELINGS IN FRONT OF THE TELEVISION RECEIVER ANALYZER WELL. INFORMED HER THAT WILL TALK TO THE CHARGE NURSE AND TRY TO FIND THE SOLUTION FOR HER. PT VERBALIZED IF HER MOM CAN BE CONTACTED ANS ASK HER IF SHE CAN LET TO LIVE WITH HER. STATES MOM DOES NOT METALLURGICAL ENGINEERING TECHNICIAN THE PTS PHONE. WILL CONTINUE TO MONITOR [PT.
--- NOTE | 2018-07-13 09:04 | NUR ---
CM NOTE I SPOKE WITH ILIR OF DR. ALMODOVAR [facility] PH# [phone] TO SET UP PATIENT'S OUTPATIENT FOLLOW UP APPOINTMENT ON JULY 17, 2018 11:45 AM AT [address] [address]. I GAVE THE PATIENT HER OUTPATIENT FOLLOW UP SCHEDULE, [facility] AND [facility]. ZE COWAN AWARE.
[2018-07-13] MEDS: IBUPROFEN 400 MG TAB PO PRN (10:09)
[2018-07-13 10:44] VITALS: BP 102/70
--- NOTE | 2018-07-13 12:05 | NUR ---
DISCHARGE PAPER WORK DONE. SIGNED BY THE PATIENT. EDUCATED HER TO FOLLOW WITH MENTAL HEALTH OUTPATIENT ORDERED BY MD. VERBALIZED UNDERSTANDING. PT IS CALM AND RELAXED. ALL BELONGINGS WITH THE PATIENT. GAVE HER PRESCRIPTION PROVIDED BY MD. OFFERED BUS PASS TO THE PATIENT. DENIES, STATES MOTHER WILL PICK HER UP . MOM COMING FROM [place]. CHARGE NURSE AWARE.
--- NOTE | 2018-07-13 12:50 | NUR ---
CHECKED ON PT. FOL,LOWED UP WITH HER REGARDING HER MOTHER ARRIVAL TIME. PT STATES HER MOM TOLD WILL BE AT HOSPITAL SOON SHE CAN . INFORMED HER TO CALL MOM AND ASK HER TIME OF ARRIVAL. PT TO CALL MOM, WILL FOLLOW UP WITH PT AGAIN.
--- NOTE | 2018-07-13 13:00 | NUR ---
PT DISCHARGED TO HOME. MOM CAME TO PICK THE PATIENT. PT STABLE AND TOOK ALL HER BELONGINGS. PT PROVIDED THE RESOURCE PACKET, PRESCRIPTION FOR ATIVAN AND MOTRIN. PT EDUCATED WITH DISCHARGE INSTRUCTION, VERBALIZED UNDERSTANDING. PT WENT HOME WITH HER MOTHER.
== END 2018-07-13 13:00 | disposition home or self-care (01) | DRG 775 ==
LOC: MED 11:15 → MTU 14:20
PROVIDERS: ADMIT Internal Medicine; ATTEND Internal Medicine
DX: F10.229 Alcohol dependence with intoxication, unspecified (principal); R45.851 Suicidal ideations; E87.8 Other disorders of electrolyte and fluid balance, not elsewhere classified; R65.10 Systemic inflammatory response syndrome (SIRS) of non-infectious origin without acute organ dysfunction; F10.239 Alcohol dependence with withdrawal, unspecified; D64.9 Anemia, unspecified; S80.01XA Contusion of right knee, initial encounter; E87.1 Hypo-osmolality and hyponatremia; F17.210 Nicotine dependence, cigarettes, uncomplicated; S80.212A Abrasion, left knee, initial encounter; F32.9 Major depressive disorder, single episode, unspecified; R44.0 Auditory hallucinations; F41.9 Anxiety disorder, unspecified; S80.211A Abrasion, right knee, initial encounter; G43.909 Migraine, unspecified, not intractable, without status migrainosus; M50.80 Other cervical disc disorders, unspecified cervical region; X58.XXXA Exposure to other specified factors, initial encounter; Y93.89 Activity, other specified; Y92.89 Other specified places as the place of occurrence of the external cause; Y99.8 Other external cause status; Z59.0 Homelessness; Z88.1 Allergy status to other antibiotic agents; Z88.5 Allergy status to narcotic agent; Z98.84 Bariatric surgery status
CPT/HCPCS: 36415; 70450; 71045; 72040; 73562; 80053; 80305; 81001; 81025; 83735; 84100; 84484; 85025; 85610; 85730; 87081; 93005; 96361; 96374; 96376; 97110; 97116; 97530; 99285; J2060; J2405; J7042; J7060; Q0092

== ENCOUNTER 2019-11-15 05:30 | Emergency (ER) | payer OTHER ==
[~2019-11-15] VITALS: Ht 165.1 cm; Wt 54.4 kg
[~2019-11-15 05:30] MED LIST changes: -BUPR-160 PO; +IBUP-2216 PO
--- NOTE | 2019-11-15 05:30 | NUR ---
Dr. Bourgeois examining patient.
[2019-11-15 05:32] VITALS: BP 107/79
--- NOTE | 2019-11-15 05:32 | NUR ---
PT MILLY BLS. TAKEN TO BED 7
[2019-11-15] MEDS ORDERED: NACL 0.9% 1,000 ML IV ONE (05:35)
--- NOTE | 2019-11-15 06:00 | NUR ---
44 Y/O FEMALE BIB [facility], AND ROOMATES CAME HOME AND STATED PT WAS "ACTING WEIRD". UPON ARRIVAL TO FACILITY PT WAS ALOC, AND ONLY GARBLED, SLURRED ANSWERS TO QUESTIONS. ASSESSMENT UNATTAINABLE DUE TO ALOC. R/R EQUAL, AND UNLABORED O2 ON RA 100%, VSS. SIDE RAIL X2, BED IN LOW POSITION WILL CONTINUE TO MONITOR.
[2019-11-15 06:40] LABS: BASOPHILS # (AUTO) 0.1 K/uL (0.00-0.22); BASOPHILS % (AUTO) 0.9 % (0.0-2.0); EOSINOPHILS # (AUTO) 0.3 K/uL (0-0.4); EOSINOPHILS % (AUTO) 3.4 % (0.0-4.0); MEAN CORPUSCULAR HEMOGLOBIN 33 pg (27-31); MEAN CORPUSCULAR HGB CONC 33 g/dL (33-37); MONOCYTES # (AUTO) 0.5 K/uL (0.8-1.0); NEUTROPHILS % (AUTO) 68.8 % (42.2-75.2)
[2019-11-15 07:02] LABS: ALBUMIN 3.8 g/dL (3.4-5.0); ANION GAP 15.6 (8-16); ASPARTATE AMINOTRANSFERASE 10 U/L (15-37); CHLORIDE 110 mmol/L (98-107); CREATININE 0.9 mg/dL (0.6-1.3); GFR ARICAN-AMERICAN 87 mL/min (>90); GLUCOSE 152 mg/dL (74-106); POTASSIUM 3.6 mmol/L (3.5-5.1); SALICYLATE 5.3 mg/dL (2.8-20.0); SODIUM SERUM 144 mmol/L (136-145); TOTAL BILIRUBIN 0.3 mg/dL (0.0-1.0); UREA NITROGEN, BLOOD 9 mg/dL (7-18)
--- NOTE | 2019-11-15 07:02 | NUR ---
PT APPEARED TO BE ASLEEP. NOT AROUSABLE TO NAME, BUT AROUSABLE TO TOUCH, NOTIFIED PATIENT I WOULD HAVE TO STRAIGHT CATH HER IN ORDER TO OBTAIN URINE. UPON HEARING BEING STRAIGHT CATHED PT BECAME MORE ALERT. I ASKED IF SHE WAS ABLE TO USE THE TOILET SHE SHOOK HER HEAD YES. PT WAS ABLE TO SIT UP, AND STAND AND SIT IN WHEELCHAIR. PT VOIDED ON TOILET INTO URINE HAT. GOT BACK INTO WHEELCHAIR, AND BACK INTO BED. A&O X2, R/R EQUAL, AND UNLABORED, VSS, BED IN LOW POSITION, SIDE RAIL X2, WILL CONTINUE TO MONITOR.
--- NOTE | 2019-11-15 07:15 | NUR ---
Report received from CAMRYN colindres. Resume care at this time.
[2019-11-15 07:43] LABS: APPEARANCE,URINE HAZY (CLEAR); BILIRUBIN,URINE NEGATIVE (NEGATIVE); BLOOD, URINE NEGATIVE (NEGATIVE); COLOR,URINE YELLOW (YELLOW); LEUKOCYTE ESTERASE ,URINE NEGATIVE (NEGATIVE); NITRITE, URINE NEGATIVE (NEGATIVE); UGLUCOSE NEGATIVE (NEGATIVE)
[2019-11-15 08:10] LABS: BARBITURATE, URINE POSITIVE ng/ml (NEG <=200); BENZODIAZEPINE, URINE NEGATIVE ng/mL (NEG <=200); CANNABINOID, URINE NEGATIVE ng/mL (NEG <=50); COCAINE, URINE NEGATIVE ng/mL (NEG <=300); OPIATE, URINE NEGATIVE ng/mL (NEG <=2000); PHENCYCLIDINE SCREEN,URINE NEGATIVE ng/mL (NEG <=25)
[2019-11-15 08:18] LABS: LYMPHOCYTES # (AUTO) 1.6 K/uL (2.5-16.5); WHITE BLOOD COUNT (AUTO) 7.9 K/uL (4.8-10.8)
[2019-11-15 08:22] LABS: HEMATOCRIT 40.5 % (36-48); HEMOGLOBIN 13.3 g/dL (12.0-16.0); LYMPHOCYTES % (AUTO) 20.5 % (20.5-51.1); MEAN CORPUSCULAR VOLUME 100.7 fL (80-94); MONOCYTES % (AUTO) 6.4 % (1.7-9.3); NEUTROPHILS # (AUTO) 5.4 K/uL (1.8-7.7); PLATELET COUNT (AUTO) 203 K/uL (140-450); RED BLOOD CELL COUNT(AUTO) 4.02 MIL/uL (4.20-5.40); RED CELL DISTRIBUTION WIDTH 13.2 % (11.6-13.7)
--- NOTE | 2019-11-15 08:22 | NUR ---
PATIENT IS RESTING IN THE BED WITH VSS. WILL CONTINUE MONITORING PATIENT'S VITAL SIGNS.
--- NOTE | 2019-11-15 09:29 | NUR ---
PT IS ASLEEP IN THE BED WITH VSS SHOWS ON THE MONITOR. WILL CONTINUE MONITORING PT'S VITAL SIGNS.
[2019-11-15 09:40] LABS: ACETAMINOPHEN < 0.5 ug/ml (10-30)
[2019-11-15] MEDS ORDERED: NACL 0.9% 1,000 ML IV SCH (10:15)
[2019-11-15] MEDS ORDERED: IBUPROFEN 400 MG TAB PO PRN (10:15)
[2019-11-15] MEDS ORDERED: ONDANSETRON 4 MG/2 ML VIAL IVP PRN (10:15)
[2019-11-15] MEDS ORDERED: HALOPERIDOL IM 5 MG/ML VIAL IM PRN (11:15)
--- NOTE | 2019-11-15 11:46 | NUR ---
PT IS ASLEEP IN THE BED WITH VSS SHOWS ON THE MONITOR. WILL CONTINUE MONITORING PT'S VITAL SIGNS.
[2019-11-15] MEDS ORDERED: AMPICILLIN/SULBACTAM 3 GM in NACL 0.9% 100 ML IV SCH (12:00)
--- NOTE | 2019-11-15 12:15 | NUR ---
PT RESTING IN BED, SIDE RAIL X2
[2019-11-15] MEDS ORDERED: AMPICILLIN/SULBACTAM 3 GM VIAL ONE (12:25)
--- NOTE | 2019-11-15 13:00 | NUR ---
London richards in ED - 11/15/19 at 1301 by NAYAN LUNCH PROVIDED TO PT TO BEDSIDE. PT STATES SHE WANTS TO GO HOME AMA. DR. MANUEL VARGAS.
--- NOTE | 2019-11-15 13:00 | NUR ---
LUNCH PROVIDED TO PT TO BEDSIDE. PT STATES SHE WANTS TO GO HOME AMA. DR. MANUEL VARGAS.
--- NOTE | 2019-11-15 13:08 | NUR ---
PT IS EATING QUIETLY IN THE BED.
--- NOTE | 2019-11-15 14:40 | NUR ---
PATIENT CAN SIGN AMA FORM PER DR. JACKSON'S ORDER.
--- NOTE | 2019-11-15 15:33 | NUR ---
PT IS ASLEEP IN THE BED WITH VSS SHOWS ON THE MONITOR. WILL CONTINUE MONITORING PT'S VITAL SIGNS.
--- NOTE | 2019-11-15 17:10 | NUR ---
PT AMBULATED TO BATHROOM WITH STEADY GAIT.
--- NOTE | 2019-11-15 17:26 | NUR ---
PATIENT STATES SHE HAS 8/10 HEADACHE. 400MG PO MOTRIN GIVEN TO PT PER DR'S PRN ORDER.
[2019-11-15 17:51] VITALS: BP 93/51
--- NOTE | 2019-11-15 17:51 | NUR ---
Patient does not wish to proceed with medical care recommended by Dr. Hunt. Patient given information related to possible complications, up to and including , which could occur as a result of leaving hospital at this time. Patient verbalizes understanding of risks involved leaving against medical advice. Patient has signed AMA form. IV removed and gauze placed on the iv insertion area to bleeding.
[2019-11-15] MEDS ORDERED: TOPIRAMATE 100 MG TAB PO SCH (21:00)
[2019-11-16] MEDS ORDERED: ENOXAPARIN 40 MG/0.4 ML SYR SUBQ SCH (09:00)
== END 2019-11-15 17:51 | disposition left against medical advice (07) ==
LOC: MED 05:30 → MMU 12:05 → UNDOADMOB 12:05 → MED 17:51
DX: F10.10 Alcohol abuse, uncomplicated (principal); R56.9 Unspecified convulsions; Z88.6 Allergy status to analgesic agent; Z88.1 Allergy status to other antibiotic agents; Z79.899 Other long term (current) drug therapy
CPT/HCPCS: 36415; 70450; 71045; 80053; 80305; 81003; 81025; 82140; 82550; 84484; 85025; 93005; 96361; 96365; 99291; G0480; G0482; J0295; Q0092

== ENCOUNTER 2019-11-15 18:11 | Emergency (ER) | payer OTHER ==
[~2019-11-15] VITALS: Ht 167.6 cm; Wt 62.6 kg
[2019-11-15 19:00] VITALS: BP 107/62
--- NOTE | 2019-11-15 21:00 | NUR ---
PT CALLED OUTSIDE AND IN LOBBY WITH NO ANSWER
--- NOTE | 2019-11-15 21:10 | NUR ---
PT CALLED OUTSIDE AND IN LOBBY WITH NO ANSWER, FOR SECOND TIME
--- NOTE | 2019-11-15 21:15 | NUR ---
PATIENT LEFT WITHOUT BEING SEEN BY DR. LAZO. NO FURTHER CARE PROVIDED FOR PATIENT.
--- NOTE | 2019-11-15 22:10 | NUR ---
PT RETURNED TO LOBBY AFTER BEING IN HER CAR. NO CHANGES IN PT CONDITION, VSS. PT SENT TO LOBBY TO A/W BED.
--- NOTE | 2019-11-15 23:11 | NUR ---
PT TAKEN TO BED 4
--- NOTE | 2019-11-15 23:15 | NUR ---
44 y/o female presented to ED c/o PLATT since 1600. Pt was in ER earlier today but left AMA this morning. Pt returned d/t PLATT and needing her d/c papers. Pt states PLATT 11/25 throbbing w/ no relief from Ibuprofen administered earlier today. Pt + nausea , - vomit , -fever, -diarrhea , -blurry vision. A/O x4. pt resting in bed, locked and in lowest position, hob elevated, side rail x1. RR even and unlabored. pmh: see pt chart ax: erythromycin, morphine
[2019-11-15 23:29] VITALS: BP 102/64
--- NOTE | 2019-11-15 23:47 | NUR ---
Dr. Alonzo examining patient.
[2019-11-15] MEDS ORDERED: ONDANSETRON 4 MG ODT PO ONE (23:50)
[2019-11-15] MEDS ORDERED: SUMAtriptan succinate 25 MG TAB PO ONE (23:50)
[2019-11-16] MEDS ORDERED: KETOROLAC 30 MG/ML VIAL IM ONE (00:45)
--- NOTE | 2019-11-16 01:26 | NUR ---
Patient discharged with v/s stable. Written and verbal after care instructions given and explained. Patient alert, oriented and verbalized understanding of instructions. Ambulatory with steady gait. All questions addressed prior to discharge. ID band removed. Patient advised to follow up with PMD. Rx of IMMITREX, NAPROXEN given. Patient educated on indication of medication including possible reaction and side effects. Opportunity to ask questions provided and answered.
== END 2019-11-16 01:26 | disposition home or self-care (01) ==
LOC: MED 18:11
DX: G43.909 Migraine, unspecified, not intractable, without status migrainosus (principal); F17.200 Nicotine dependence, unspecified, uncomplicated; Z79.899 Other long term (current) drug therapy; Z88.5 Allergy status to narcotic agent; Z88.1 Allergy status to other antibiotic agents; Z71.6 Tobacco abuse counseling
CPT/HCPCS: 96372; 99283; J1885; Q0162